=== PATIENT | male | born 1985 | race Caucasian/White ===

== ENCOUNTER 2017-03-11 09:00 | Emergency (ER) | payer MEDICAID ==
[~2017-03-11] VITALS: Ht 177.8 cm; Wt 94.6 kg
[2017-03-11 12:14] VITALS: BP 119/74
== END 2017-03-11 12:14 | disposition home or self-care (01) ==
LOC: ED 09:00
DX: J20.9 Acute bronchitis, unspecified (principal); R07.89 Other chest pain
CPT/HCPCS: Q0092

== ENCOUNTER 2017-03-13 17:49 | Emergency (ER) | payer MEDICAID ==
[2017-03-13 18:49] LABS: AMPHETAMINE QUAL UR NONE DETECTED (NEG <=1000)
[2017-03-13 18:49] LABS: CALCIUM 8.4 mg/dL (8.5-10.1); CARBON DIOXIDE 25.8 mmol/L (21-32); CHLORIDE SERUM 97 mmol/L (98-107); CREATININE SERUM 1.3 mg/dL (0.7-1.3); GFR1 > 60 mL/min; GLUCOSE SERUM 103 mg/dL (74-106); POTASSIUM SERUM 3.5 mmol/L (3.5-5.1); SODIUM SERUM 131 mmol/L (136-145)
[2017-03-13 18:53] LABS: BASOPHIL % 0.4 % (0-2); PLATELET COUNT 171 x10^3mcL (130-400); RED CELL DISTRIBUTION WIDTH 12.6 % (11.5-14.5)
[2017-03-13 18:54] LABS: ALBUMIN 3.8 g/dL (3.4-5.0); ALKALINE PHOSPHATASE 103 U/L (46-116); ALT/SGPT 145 U/L (16-63); AST/SGOT 85 U/L (15-37); BILIRUBIN TOTAL 1.1 mg/dL (0.20-1.00); TOTAL PROTEIN, SERUM 7.1 g/dL (6.4-8.2)
[2017-03-13 21:17] VITALS: BP 120/70
== END 2017-03-13 21:17 | disposition home or self-care (01) ==
LOC: ED 17:49
PROVIDERS: Emergency Medicine Emergency Medical Services
DX: J40 Bronchitis, not specified as acute or chronic (principal); R20.0 Anesthesia of skin; R20.2 Paresthesia of skin; Z79.2 Long term (current) use of antibiotics; Z79.891 Long term (current) use of opiate analgesic
CPT/HCPCS: 36415; G0480; J2060